=== PATIENT | female | born 1945 | race Asian ===

== ENCOUNTER 2023-08-01 10:47 | Inpatient (IN) | payer OTHER ==
[~2023-08-01] VITALS: Ht 152.4 cm; Wt 57.2 kg
[2023-08-01 10:47] VITALS: BP_SYST 144; PULSE 116; RESP 18; TEMP 97.2; O2SAT 100
[2023-08-01] MEDS ORDERED: iohexoL 350 mgI/mL, 100 ML INFUS..BTL IV ONE ×2 (11:00→16:19)
[2023-08-01 11:48] LABS: BASOPHILS # (AUTO) 0.1 K/uL (0.0-0.2); BASOPHILS % (AUTO) 1.9 % (0.0-2.0); EOSINOPHILS # (AUTO) 0.1 K/uL (0.0-0.4); EOSINOPHILS % (AUTO) 1.4 % (0.0-4.0); HEMOGLOBIN 12.9 g/dL (12.0-16.0); LYMPHOCYTES # (AUTO) 1.6 K/uL (1.0-5.5); LYMPHOCYTES % (AUTO) 26.7 % (20.5-51.5); MEAN CORPUSCULAR HEMOGLOBIN 31 pg (27-31); MEAN CORPUSCULAR HGB CONC 34 % (32-36); MEAN CORPUSCULAR VOLUME 92 fL (79.0-98.0); MONOCYTES % (AUTO) 16.4 % (1.7-9.3); NEUTROPHILS # (AUTO) 3.3 K/uL (1.8-7.7); NEUTROPHILS % (AUTO) 53.6 % (40.0-70.0); PLATELET COUNT (AUTO) 234 K/uL (130-430); RED BLOOD CELL COUNT(AUTO) 4.14 MIL/uL (4.2-6.2); RED CELL DISTRIBUTION WIDTH 17.4 % (9.0-15.0); WHITE BLOOD COUNT (AUTO) 6.1 K/uL (4.8-10.8)
[2023-08-01] MEDS: NACL 0.9% 1,000 ML IV ONE (12:00)
[2023-08-01 12:26] LABS: ANION GAP 9 (5-15); CALCIUM 9.1 mg/dL (8.4-11.0); CARBON DIOXIDE 20 mmol/L (23-29); CHLORIDE 102 mmol/L (98-107); CREATININE 1.23 mg/dL (0.55-1.30); GLUCOSE 97 mg/dL (74-106); POTASSIUM 5.4 mmol/L (3.5-5.1); SODIUM SERUM 131 mmol/L (136-145); UREA NITROGEN, BLOOD 30 mg/dL (8-21)
[2023-08-01 13:01] LABS: BILIRUBIN,URINE NEGATIVE (NEGATIVE); BLOOD, URINE 3+ (NEGATIVE); CLARITY/URINE SLIGHTLY HAZY (CLEAR); COLOR,URINE Y (YELLOW); GLUCOSE,URINE NEGATIVE (NEGATIVE); KETONES,URINE NEGATIVE (NEGATIVE); LEUKOCYTE ESTERASE ,URINE TRACE (NEGATIVE); NITRITE, URINE NEGATIVE (NEGATIVE); PROTEIN URINE TRACE (NEGATIVE)
[2023-08-01 13:02] LABS: UROBILINOGEN,URINE 0.2 (0.2-1.0)
[2023-08-01 13:04] LABS: INR 1.7 (0.8-1.2); PROTHROMBIN TIME 16.9 SECS (9.5-12.5)
[2023-08-01 13:07] LABS: BACTERIA,URINE MODERATE /HPF (None Seen)
[2023-08-01] MEDS: ASPIRIN 81 MG TAB.CHEW PO ONE (13:16)
[2023-08-01 13:42] LABS: INFLUENZA TYPE A Negative (NEGATIVE); INFLUENZA TYPE B NEGATIVE (NEGATIVE)
[2023-08-01 13:46] LABS: COVID19 ANTIGEN SOFIA FIA NEGATIVE (NEGATIVE)
[2023-08-01] MEDS: ASPIRIN 300 MG/SUPP.RECT SUPP RC ONE (14:00)
[2023-08-01] MEDS: cefTRIAXone 1 GM IVPB PREMIX 50 ML IV ONE (15:13)
[2023-08-01] MEDS ORDERED: AMLO5TAB92 PO (15:21)
[2023-08-01] MEDS ORDERED: DONE5TAB33 PO (15:21)
[2023-08-01] MEDS ORDERED: LACT10SO6 PO (15:21)
[2023-08-01] MEDS ORDERED: GEMF600T89 PO (15:21)
[2023-08-01] MEDS ORDERED: DOCU-144 PO (16:10)
[2023-08-01] MEDS ORDERED: DULR10 (16:15)
[2023-08-01] MEDS ORDERED: [UNRECOGNIZED DRUG - CODE] PO (16:15)
[2023-08-01] MEDS ORDERED: NAPR-1174 PO (16:16)
[2023-08-01] MEDS ORDERED: MULT-598 PO (16:17)
[2023-08-01] MEDS: D5NS 1,000 ML IV SCH (20:23)
[2023-08-01] MEDS ORDERED: ENALAPRILAT DIHYDRATE 1.25 MG/ML VIAL IVP PRN (22:45)
[2023-08-01 23:31] VITALS: BP_SYST 136; PULSE 88; RESP 18; TEMP 97.5; O2SAT 98
[2023-08-01 23:33] LABS: ANION GAP 7 (5-15); CALCIUM 8.1 mg/dL (8.4-11.0); CARBON DIOXIDE 23 mmol/L (23-29); CHLORIDE 103 mmol/L (98-107); CREATININE 1.17 mg/dL (0.55-1.30); GLUCOSE 90 mg/dL (74-106); POTASSIUM 4.9 mmol/L (3.5-5.1); SODIUM SERUM 133 mmol/L (136-145); UREA NITROGEN, BLOOD 23 mg/dL (8-21)
[2023-08-02] VITALS (7 sets, daily range): BP systolic 124–132; PULSE 77–90; RESP 16–18; TEMP 96.3–98.8; O2SAT 93–100
[2023-08-02 05:02] LABS: BASOPHILS # (AUTO) 0.1 K/uL (0.0-0.2); BASOPHILS % (AUTO) 1.3 % (0.0-2.0); EOSINOPHILS # (AUTO) 1.2 K/uL (0.0-0.4); EOSINOPHILS % (AUTO) 14.2 % (0.0-4.0); HEMATOCRIT 32.9 % (36-48); HEMOGLOBIN 11.3 g/dL (12.0-16.0); LYMPHOCYTES # (AUTO) 2.2 K/uL (1.0-5.5); LYMPHOCYTES % (AUTO) 26.3 % (20.5-51.5); MEAN CORPUSCULAR HEMOGLOBIN 31 pg (27-31); MEAN CORPUSCULAR HGB CONC 34 % (32-36); MEAN CORPUSCULAR VOLUME 90 fL (79.0-98.0); MONOCYTES # (AUTO) 1.5 K/uL (0.0-1.0); NEUTROPHILS # (AUTO) 3.4 K/uL (1.8-7.7); NEUTROPHILS % (AUTO) 40.2 % (40.0-70.0); PLATELET COUNT (AUTO) 204 K/uL (130-430); RED BLOOD CELL COUNT(AUTO) 3.66 MIL/uL (4.2-6.2); RED CELL DISTRIBUTION WIDTH 17.3 % (9.0-15.0); WHITE BLOOD COUNT (AUTO) 8.5 K/uL (4.8-10.8)
[2023-08-02 05:33] LABS: ANION GAP 9 (5-15); CALCIUM 8.2 mg/dL (8.4-11.0); CARBON DIOXIDE 19 mmol/L (23-29); CHLORIDE 104 mmol/L (98-107); CREATININE 0.99 mg/dL (0.55-1.30); GLUCOSE 100 mg/dL (74-106); POTASSIUM 4.5 mmol/L (3.5-5.1); SODIUM SERUM 132 mmol/L (136-145); UREA NITROGEN, BLOOD 21 mg/dL (8-21)
[2023-08-02] MEDS ORDERED: GADOTERATE MEGLUMINE 7.5 MMOL/15 ML VIAL IV ONE (07:36)
[2023-08-02] MEDS: cefTRIAXone 1 GM IVPB PREMIX 50 ML IV SCH (08:45)
[2023-08-02] MEDS ORDERED: MENTHOL/ZINC OXIDE 113 GM OINT. TP PRN (13:15)
[2023-08-02] MEDS: BALSAM PERU/CASTOR OIL 56.7 GM OINT...G. TP ONE (13:38)
[2023-08-03] VITALS (7 sets, daily range): BP systolic 89–117; PULSE 55–82; RESP 16–18; TEMP 97.5–98.4; O2SAT 99–100
[2023-08-03 04:41] LABS: BASOPHILS # (AUTO) 0.1 K/uL (0.0-0.2); EOSINOPHILS # (AUTO) 2.1 K/uL (0.0-0.4); EOSINOPHILS % (AUTO) 20.4 % (0.0-4.0); HEMATOCRIT 30.3 % (36-48); HEMOGLOBIN 10.3 g/dL (12.0-16.0); LYMPHOCYTES # (AUTO) 4.5 K/uL (1.0-5.5); LYMPHOCYTES % (AUTO) 44.1 % (20.5-51.5); MEAN CORPUSCULAR HEMOGLOBIN 31 pg (27-31); MEAN CORPUSCULAR HGB CONC 34 % (32-36); MEAN CORPUSCULAR VOLUME 91 fL (79.0-98.0); MONOCYTES % (AUTO) 19.9 % (1.7-9.3); NEUTROPHILS # (AUTO) 1.5 K/uL (1.8-7.7); NEUTROPHILS % (AUTO) 14.6 % (40.0-70.0); PLATELET COUNT (AUTO) 178 K/uL (130-430); RED BLOOD CELL COUNT(AUTO) 3.34 MIL/uL (4.2-6.2); RED CELL DISTRIBUTION WIDTH 17.9 % (9.0-15.0); WHITE BLOOD COUNT (AUTO) 10.2 K/uL (4.8-10.8)
[2023-08-03 05:47] LABS: ALANINE AMINOTRANSFERASE 582 U/L (12-78); ANION GAP 10 (5-15); ASPARTATE AMINOTRANSFERASE 1098 U/L (10-37); CARBON DIOXIDE 21 mmol/L (23-29); CHLORIDE 109 mmol/L (98-107); CREATININE 0.94 mg/dL (0.55-1.30); GLUCOSE 102 mg/dL (74-106); POTASSIUM 4.1 mmol/L (3.5-5.1); SODIUM SERUM 140 mmol/L (136-145); TOTAL BILIRUBIN 0.6 mg/dL (0.0-1.0); TOTAL PROTEIN, SERUM 4.8 g/dL (6.4-8.3); UREA NITROGEN, BLOOD 17 mg/dL (8-21)
[2023-08-03] MEDS: D5NS 1,000 ML IV SCH (11:57)
[2023-08-03] MEDS: BALSAM PERU/CASTOR OIL 56.7 GM OINT...G. TP SCH (15:43)
[2023-08-04 00:29] VITALS: BP_SYST 121; PULSE 71; RESP 20; TEMP 97.7; O2SAT 99
[2023-08-04 07:06] LABS: HEMATOCRIT 31.3 % (36-48); HEMOGLOBIN 10.5 g/dL (12.0-16.0); MEAN CORPUSCULAR HEMOGLOBIN 31 pg (27-31); MEAN CORPUSCULAR HGB CONC 34 % (32-36); MEAN CORPUSCULAR VOLUME 92 fL (79.0-98.0); PLATELET COUNT (AUTO) 175 K/uL (130-430); RED BLOOD CELL COUNT(AUTO) 3.41 MIL/uL (4.2-6.2); RED CELL DISTRIBUTION WIDTH 17.8 % (9.0-15.0)
[2023-08-04 07:28] LABS: ACETAMINOPHEN 5 ug/mL (1-30); ALANINE AMINOTRANSFERASE 439 U/L (12-78); ANION GAP 8 (5-15); ASPARTATE AMINOTRANSFERASE 609 U/L (10-37); CARBON DIOXIDE 21 mmol/L (23-29); CHLORIDE 110 mmol/L (98-107); GLUCOSE 86 mg/dL (74-106); POTASSIUM 3.8 mmol/L (3.5-5.1); SODIUM SERUM 139 mmol/L (136-145); TOTAL BILIRUBIN 0.6 mg/dL (0.0-1.0); TOTAL PROTEIN, SERUM 4.7 g/dL (6.4-8.3); UREA NITROGEN, BLOOD 13 mg/dL (8-21)
[2023-08-04 08:00] VITALS: BP_SYST 119; PULSE 65; RESP 18; TEMP 98.2; O2SAT 100
[2023-08-04 08:03] LABS: INR 1.2 (0.8-1.2); PROTHROMBIN TIME 12.8 SECS (9.5-12.5)
[2023-08-04 08:43] LABS: ANISOCYTOSIS 1+; BASOPHILS % (MANUAL) 0 % (0-2); EOSINOPHILS % (MANUAL) 17 % (0-7); LYMPHOCYTES % (MANUAL) 38 % (20-46); MONOCYTES % (MANUAL) 24 % (0-11); PLATELET ESTIMATE ADEQUATE (ADEQUATE)
[2023-08-04 08:44] LABS: HELMET CELLS FEW; TEAR DROP CELLS FEW
[2023-08-04] MEDS: LACTULOSE 20 GM/30 ML UDC PO SCH (09:49)
[2023-08-04 10:27] VITALS: O2SAT 100
[2023-08-04 11:50] VITALS: BP_SYST 110; PULSE 61; RESP 17; TEMP 97.5; O2SAT 100
[2023-08-04] MEDS: VANCOMYCIN HCL 1,000 MG in NS 250 ML IV SCH (17:00)
[2023-08-04 17:24] VITALS: BP_SYST 102; PULSE 62; RESP 17; TEMP 98.4; O2SAT 99
[2023-08-04] MEDS: VANCOMYCIN HCL 1 GM/NS PREMIX 250 ML IV ONE (17:26)
[2023-08-04 20:00] VITALS: BP_SYST 90; PULSE 66; RESP 17; TEMP 98.9; O2SAT 99
[2023-08-04] MEDS: MEGESTROL ACETATE 400 MG/10 ML UDC PO SCH (21:28)
[2023-08-05] VITALS: BP_SYST 115; PULSE 62; RESP 18; TEMP 97.8; O2SAT 98
[2023-08-05 07:43] LABS: TOTAL IRON BIND. CAPACITY 194 ug/dL (250-450)
[2023-08-05 08:25] VITALS: BP_SYST 119; PULSE 63; RESP 16; TEMP 96.6; O2SAT 100
[2023-08-05 11:48] VITALS: BP_SYST 126; PULSE 74; RESP 16; TEMP 97.5; O2SAT 100
[2023-08-05 17:03] VITALS: BP_SYST 129; PULSE 92; RESP 18; TEMP 98.8; O2SAT 100
[2023-08-05 20:00] VITALS: BP_SYST 123; PULSE 81; RESP 16; TEMP 98.6; O2SAT 98
[2023-08-06 00:14] VITALS: BP_SYST 141; PULSE 74; RESP 18; TEMP 97.7; O2SAT 100
[2023-08-06 05:32] LABS: BASOPHILS % (AUTO) 0.3 % (0.0-2.0); EOSINOPHILS # (AUTO) 0.8 K/uL (0.0-0.4); HEMOGLOBIN 9.4 g/dL (12.0-16.0); LYMPHOCYTES # (AUTO) 1.8 K/uL (1.0-5.5); LYMPHOCYTES % (AUTO) 20.7 % (20.5-51.5); MEAN CORPUSCULAR HEMOGLOBIN 31 pg (27-31); MEAN CORPUSCULAR HGB CONC 34 % (32-36); MEAN CORPUSCULAR VOLUME 91 fL (79.0-98.0); MONOCYTES # (AUTO) 2.6 K/uL (0.0-1.0); NEUTROPHILS # (AUTO) 3.5 K/uL (1.8-7.7); PLATELET COUNT (AUTO) 194 K/uL (130-430); RED BLOOD CELL COUNT(AUTO) 3.08 MIL/uL (4.2-6.2); RED CELL DISTRIBUTION WIDTH 17.4 % (9.0-15.0); WHITE BLOOD COUNT (AUTO) 8.8 K/uL (4.8-10.8)
[2023-08-06 06:10] LABS: ALBUMIN 1.8 g/dL (3.4-4.8); ANION GAP 9 (5-15); CALCIUM 7.7 mg/dL (8.4-11.0); CARBON DIOXIDE 22 mmol/L (23-29); CHLORIDE 115 mmol/L (98-107); CREATININE 0.73 mg/dL (0.55-1.30); GLUCOSE 110 mg/dL (74-106); SODIUM SERUM 146 mmol/L (136-145); TOTAL BILIRUBIN 0.4 mg/dL (0.0-1.0); TOTAL PROTEIN, SERUM 4.4 g/dL (6.4-8.3); UREA NITROGEN, BLOOD 12 mg/dL (8-21)
[2023-08-06 07:51] LABS: POTASSIUM 2.9 mmol/L (3.5-5.1)
[2023-08-06 07:52] LABS: ALANINE AMINOTRANSFERASE 188 U/L (12-78); ASPARTATE AMINOTRANSFERASE 131 U/L (10-37)
[2023-08-06 08:00] VITALS: BP_SYST 135; PULSE 72; RESP 16; TEMP 100; O2SAT 100
[2023-08-06 08:06] LABS: ALPHA-1-ANTITRYPSIN, S 157 mg/dL (101-187)
[2023-08-06 09:07] LABS: ANTI NUCLEAR AB WITH REFLEX Negative (Negative)
[2023-08-06] MEDS: POTASSIUM CHLORIDE 20 MEQ TABLET.ER PO ONE (09:57)
[2023-08-06 11:31] VITALS: BP_SYST 125; PULSE 71; RESP 16; TEMP 97.6; O2SAT 93
[2023-08-06] MEDS: POTASSIUM CHLORIDE 40 MEQ, LIDOCAINE JECT 2% PF 100 MG 75 MG in NS 250 ML IV ONE (12:04)
[2023-08-06 12:06] LABS: HEPATITIS A AB, IgM Negative (Negative); HEPATITIS B CORE AB, IgM Negative (Negative); HEPATITIS B SURFACE AG Negative (Negative)
[2023-08-06 15:30] VITALS: BP_SYST 122; PULSE 69; RESP 16; TEMP 98.2; O2SAT 100
[2023-08-06 20:00] VITALS: BP_SYST 119; PULSE 73; RESP 18; TEMP 98.4; O2SAT 100
[2023-08-06 20:06] LABS: HEPATITIS C VIRUS AB Non Reactive (Non Reactive)
[2023-08-07] VITALS (7 sets, daily range): BP systolic 103–139; PULSE 58–82; RESP 16–18; TEMP 96.5–98; O2SAT 93–100
[2023-08-07 06:41] LABS: ALANINE AMINOTRANSFERASE 136 U/L (12-78); ALBUMIN 1.7 g/dL (3.4-4.8); ANION GAP 9 (5-15); ASPARTATE AMINOTRANSFERASE 69 U/L (10-37); CALCIUM 7.6 mg/dL (8.4-11.0); CARBON DIOXIDE 20 mmol/L (23-29); CHLORIDE 118 mmol/L (98-107); CREATININE 0.68 mg/dL (0.55-1.30); GLUCOSE 102 mg/dL (74-106); POTASSIUM 3.5 mmol/L (3.5-5.1); SODIUM SERUM 147 mmol/L (136-145); TOTAL BILIRUBIN 0.5 mg/dL (0.0-1.0); TOTAL PROTEIN, SERUM 4.5 g/dL (6.4-8.3); UREA NITROGEN, BLOOD 12 mg/dL (8-21)
[2023-08-08] VITALS (7 sets, daily range): BP systolic 110–122; PULSE 74–92; RESP 17–20; TEMP 97.3–98.7; O2SAT 97–100
[2023-08-08 06:06] LABS: HEMATOCRIT 25.2 % (36-48); HEMOGLOBIN 8.6 g/dL (12.0-16.0); MEAN CORPUSCULAR HEMOGLOBIN 31 pg (27-31); MEAN CORPUSCULAR HGB CONC 34 % (32-36); MEAN CORPUSCULAR VOLUME 92 fL (79.0-98.0); PLATELET COUNT (AUTO) 244 K/uL (130-430); RED BLOOD CELL COUNT(AUTO) 2.75 MIL/uL (4.2-6.2); RED CELL DISTRIBUTION WIDTH 17.4 % (9.0-15.0); WHITE BLOOD COUNT (AUTO) 11.1 K/uL (4.8-10.8)
[2023-08-08 06:31] LABS: ANION GAP 7 (5-15); CALCIUM 7.5 mg/dL (8.4-11.0); CARBON DIOXIDE 21 mmol/L (23-29); CHLORIDE 118 mmol/L (98-107); CREATININE 0.66 mg/dL (0.55-1.30); GLUCOSE 110 mg/dL (74-106); POTASSIUM 3.5 mmol/L (3.5-5.1); SODIUM SERUM 146 mmol/L (136-145); UREA NITROGEN, BLOOD 12 mg/dL (8-21)
[2023-08-08 08:06] LABS: ANISOCYTOSIS 1+; BASOPHILS % (MANUAL) 0 % (0-2); EOSINOPHILS % (MANUAL) 4 % (0-7); LYMPHOCYTES % (MANUAL) 13 % (20-46); MONOCYTES % (MANUAL) 33 % (0-11); PLATELET ESTIMATE ADEQUATE (ADEQUATE)
[2023-08-08] MEDS ORDERED: LACT10SO6 PO (12:57)
[2023-08-08] MEDS ORDERED: ROCPM1 IV (12:57)
[2023-08-08] MEDS ORDERED: MEGE400O17 PO (12:58)
[2023-08-08] MEDS ORDERED: BALS5OIN TP (13:00)
[2023-08-08] MEDS ORDERED: VENELEX60G (13:00)
[2023-08-08] MEDS ORDERED: CALMO120 TP (13:01)
[2023-08-08 19:09] LABS: ANTI-SMOOTH MUSCLE AB 3 Units (0-19)
[2023-08-09 12:30] LABS: GAMMA GLUTAMYL TRANSFERASE 52 U/L (5-85)
== END 2023-08-08 21:50 | DRG 871 ==
LOC: SED 10:47 → STU 19:37 → SMU 08-07 15:01
PROVIDERS: ADMIT Internal Medicine; ATTEND Internal Medicine
PROC: 05HY33Z Insertion of Infusion Device into Upper Vein, Percutaneous Approach (ICD-10-PCS; principal; 2023-08-01)
DX: A41.9 Sepsis, unspecified organism (principal); G93.41 Metabolic encephalopathy; N39.0 Urinary tract infection, site not specified; E87.1 Hypo-osmolality and hyponatremia; Z20.822 Contact with and (suspected) exposure to COVID-19; E86.0 Dehydration; E87.5 Hyperkalemia; I10 Essential (primary) hypertension; F03.90 Unspecified dementia, unspecified severity, without behavioral disturbance, psychotic disturbance, mood disturbance, and anxiety; E78.5 Hyperlipidemia, unspecified; D64.9 Anemia, unspecified; Z79.899 Other long term (current) drug therapy
CPT/HCPCS: 36415; 70450; 70496; 70498; 70553; 71045; 76700; 80048; 80053; 80074; 81000; 81001; 81015; 82103; 82140; 82390; 83516; 83540; 83550; 83605; 83735; 83880; 84132; 84484; 85007; 85025; 85027; 85610; 85730; 86038; 87040; 87081; 87086; 92610-GN; 93005; 95816; 97110-GO; 97110-GP; 97112-GP; 97530-GO; 97530-GP; 97535-GO; 99285; A9575; G0378; G0480; J0696; J3370; J3480; J7050; Q9967

== ENCOUNTER 2023-12-07 08:56 | Emergency (ER) | payer OTHER ==
[~2023-12-07] VITALS: Ht 160 cm; Wt 59.0 kg
[~2023-12-07 08:56] MED LIST: BALS5OIN TP; CALMO120 TP; LACT10SO6 PO; MEGE400O45 PO; ROCPM1 IV; VENELEX60G
[2023-12-07 09:02] VITALS: BP_SYST 125; PULSE 80; RESP 16; TEMP 97.7; O2SAT 98
[2023-12-07 09:36] VITALS: RESP 14; TEMP 97.7
[2023-12-07 10:30] LABS: BASOPHILS # (AUTO) 0.1 K/uL (0.0-0.2); BASOPHILS % (AUTO) 1.1 % (0.0-2.0); EOSINOPHILS # (AUTO) 0.5 K/uL (0.0-0.4); EOSINOPHILS % (AUTO) 6.8 % (0.0-4.0); HEMATOCRIT 44.9 % (36-48); HEMOGLOBIN 14.5 g/dL (12.0-16.0); LYMPHOCYTES # (AUTO) 2.3 K/uL (1.0-5.5); LYMPHOCYTES % (AUTO) 32.6 % (20.5-51.5); MEAN CORPUSCULAR HEMOGLOBIN 30 pg (27-31); MEAN CORPUSCULAR HGB CONC 32 % (32-36); MEAN CORPUSCULAR VOLUME 93 fL (79.0-98.0); MONOCYTES # (AUTO) 0.7 K/uL (0.0-1.0); MONOCYTES % (AUTO) 10.4 % (1.7-9.3); NEUTROPHILS # (AUTO) 3.4 K/uL (1.8-7.7); NEUTROPHILS % (AUTO) 49.1 % (40.0-70.0); PLATELET COUNT (AUTO) 173 K/uL (130-430); RED BLOOD CELL COUNT(AUTO) 4.83 MIL/uL (4.2-6.2); RED CELL DISTRIBUTION WIDTH 13.7 % (9.0-15.0); WHITE BLOOD COUNT (AUTO) 6.9 K/uL (4.8-10.8)
[2023-12-07 10:45] LABS: ANION GAP 5 (5-15); CALCIUM 9.1 mg/dL (8.4-11.0); CARBON DIOXIDE 25 mmol/L (23-29); CHLORIDE 109 mmol/L (98-107); CHOLESTEROL 229 mg/dL (<200); CREATININE 1.02 mg/dL (0.55-1.30); GLUCOSE 91 mg/dL (74-106); HDL CHOLESTEROL 45 mg/dL (>55); POTASSIUM 4.4 mmol/L (3.5-5.1); SODIUM SERUM 139 mmol/L (136-145); TRIGLYCERIDES 78 mg/dL (30-150); UREA NITROGEN, BLOOD 21 mg/dL (8-21)
[2023-12-07 10:46] LABS: PROTHROMBIN TIME 10.7 SECS (9.5-12.5)
[2023-12-07 11:01] LABS: HEMOGLOBIN A1C 5.7 % (<5.7)
[2023-12-07] MEDS: NYSTATIN 500,000 UNITS/5 ML UDC PO SCH (11:59)
[2023-12-07] MEDS: ASCORBIC ACID 500 MG TABLET PO SCH (11:59)
[2023-12-07] MEDS: DEXTROSE 50% JECT 50 ML DISP.SYRIN IVP ONE (12:03)
[2023-12-07] MEDS: NYSTATIN 500,000 UNITS/5 ML UDC PO ONE (13:00)
[2023-12-07] MEDS: ASCORBIC ACID 500 MG TABLET PO ONE (13:00)
[2023-12-07 14:28] VITALS: BP_SYST 134; PULSE 65; O2SAT 96
== END 2023-12-07 14:26 | disposition short-term general hospital (02) ==
LOC: SED 08:56
DX: I65.01 Occlusion and stenosis of right vertebral artery (principal); I63.89 Other cerebral infarction; I10 Essential (primary) hypertension; E16.2 Hypoglycemia, unspecified; Z79.899 Other long term (current) drug therapy; Z79.2 Long term (current) use of antibiotics
CPT/HCPCS: 36415; 70450; 70496; 70498; 71045; 80048; 80061; 82948; 83037; 84484; 85025; 85610; 85730; 86886; 86900; 86901; 93005; 96374; 99291